=== PATIENT | female | born 1970 | race Caucasian/White ===

== ENCOUNTER 2019-01-20 15:03 | Emergency (ER) | payer MEDICAID, OTHER ==
[~2019-01-20] VITALS: Ht 175.3 cm; Wt 109.1 kg
[~2019-01-20 15:03] MED LIST: IBUP-1985 PO
[2019-01-20] MEDS ORDERED: normal saline 1000ML IV soln IVB ONE (15:45)
[2019-01-20 16:23] LABS: BASOPHILS # (AUTO) 0.1 X10'3 (0-0.2); EOSINOPHILS # (AUTO) 0.2 X10'3 (0-0.9); EOSINOPHILS % (AUTO) 1.6 % (0-6); HEMATOCRIT 42.2 % (35.0-45.0); HEMOGLOBIN 14.3 g/dl (12.0-16.0); LYMPHOCYTES # (AUTO) 2.3 X10'3 (1.1-4.8); LYMPHOCYTES % (AUTO) 24.1 % (21-51); MEAN CORPUSCULAR HEMOGLOBIN 29.8 PG (27.0-31.0); MEAN CORPUSCULAR HGB CONC 33.8 g/dL (33.0-36.5); MEAN CORPUSCULAR VOLUME 88.4 FL (78-98); MEAN PLATELET VOLUME 8.8 FL (7.4-10.4); MONOCYTES # (AUTO) 0.6 X10'3 (0-0.9); NEUTROPHILS # (AUTO) 6.3 X10'3 (1.8-7.7); NEUTROPHILS % (AUTO) 67.3 % (42-75); PLATELET COUNT 324 X10'3 (140-440); RED BLOOD COUNT 4.78 X10'6 (4.20-5.60); WHITE BLOOD COUNT 9.4 X10'3 (4.5-11.0)
[2019-01-20] MEDS ORDERED: ketorolac tromethamine 15mg/ml inj. IV ONE (16:25)
[2019-01-20] MEDS ORDERED: tranexamic acid inj. 1,000 MG in normal saline 100ml IV soln 100 ML IV ONE (16:25)
[2019-01-20 16:34] LABS: ALANINE AMINOTRANSFERASE 52 U/L (12-78); ALBUMIN 3.7 G/DL (3.4-5.0); ALBUMIN/GLOBULIN RATIO 0.9 (1.1-1.5); ALKALINE PHOSPHATASE 75 IU/L (46-116); ANION GAP 10 (8-16); ASPARTATE AMINO TRANSFERASE 21 U/L (10-37); BILIRUBIN,TOTAL 0.5 MG/DL (0.1-1.0); BLOOD UREA NITROGEN 12 MG/DL (7-18); BUN/CREATININE RATIO 12.1 (6.6-38.0); CALCIUM 9.2 MG/DL (8.5-10.1); CHLORIDE 106 MMOL/L (99-107); CREATININE 0.99 MG/DL (0.40-0.90); GLUCOSE 129 MG/DL (70-104); POTASSIUM 3.6 MMOL/L (3.5-5.1); SODIUM 141 MMOL/L (135-145); TOTAL CARBON DIOXIDE 25.3 MMOL/L (24-32); TOTAL PROTEIN 7.6 G/DL (6.4-8.2); eGFR 60 ML/MIN
[2019-01-20 16:44] LABS: PARTIAL THROMBOPLASTIN TIME 28 SECONDS (22-32); PROTHROMBIN TIME 9.7 SECONDS (9.0-12.0)
[2019-01-20 17:53] VITALS: BP 141/101
[2019-01-20 18:39] LABS: CLARITY,URINE CLEAR (Clear); COLOR,URINE YELLOW (Yellow); GLUCOSE, URINE >=1000 mg/dl (Neg); KETONES,URINE TRACE mg/dl (Neg); LEUKOCYTE ESTERASE ,URINE NEGATIVE (Neg); NITRITES, URINE NEGATIVE (Neg); OCCULT BLOOD,URINE NEGATIVE (Neg); PH,URINE 5.5 (4.8-8.0); PROTEIN,URINE NEGATIVE (Neg); UROBILINOGEN,URINE 0.2 E.U/dL (0.2-1.0)
[2019-01-20 18:41] LABS: UA COLLECTION TYPE CLN CATCH MIDSTREAM
[2019-01-20 18:49] LABS: BACTERIA,URINE NONE SEEN /HPF (Neg); RBC,URINE NONE SEEN /HPF (0-2); WBC,URINE NONE SEEN /HPF (0-4)
[2019-01-20 18:50] LABS: SQUAMOUS EPITHELIAL CELL,UR FEW /LPF (FEW)
== END 2019-01-20 19:27 | disposition home or self-care (01) ==
LOC: ER 15:03
DX: N93.8 Other specified abnormal uterine and vaginal bleeding (principal); Z88.5 Allergy status to narcotic agent
CPT/HCPCS: 36415; 80053; 81001; 85025; 85610; 85730; 96365; 96375; 99283; J1885; J7030

== ENCOUNTER 2021-03-31 20:43 | Emergency (ER) | payer MEDICAID ==
[~2021-03-31] VITALS: Ht 175.3 cm; Wt 129.5 kg
[2021-03-31 21:05] VITALS: BP 166/110
[2021-03-31] MEDS ORDERED: CEPH500C2 PO (22:11)
== END 2021-03-31 22:27 | disposition home or self-care (01) ==
LOC: ER 20:44
DX: L03.114 Cellulitis of left upper limb (principal); R21 Rash and other nonspecific skin eruption; Z88.5 Allergy status to narcotic agent; Z79.899 Other long term (current) drug therapy
CPT/HCPCS: 99283

== ENCOUNTER 2022-10-29 06:51 | Emergency (ER) | payer MEDICAID ==
[~2022-10-29] VITALS: Ht 175.3 cm; Wt 113.6 kg
[2022-10-29 11:01] LABS: BASOPHILS # (AUTO) 0.1 X10'3 (0-0.2); BASOPHILS % (AUTO) 0.8 % (0-1); EOSINOPHILS # (AUTO) 0.2 X10'3 (0-0.9); EOSINOPHILS % (AUTO) 2.9 % (0-6); HEMATOCRIT 46.4 % (35.0-45.0); HEMOGLOBIN 15.1 g/dl (12.0-16.0); LYMPHOCYTES # (AUTO) 1.9 X10'3 (1.1-4.8); MEAN CORPUSCULAR HGB CONC 32.6 g/dL (33.0-36.5); MEAN CORPUSCULAR VOLUME 88.9 FL (78-98); MEAN PLATELET VOLUME 9.2 FL (7.4-10.4); MONOCYTES # (AUTO) 0.5 X10'3 (0-0.9); MONOCYTES % (AUTO) 6.8 % (2-12); NEUTROPHILS # (AUTO) 4.6 X10'3 (1.8-7.7); NEUTROPHILS % (AUTO) 63.5 % (42-75); PLATELET COUNT 237 X10'3 (140-440); RED BLOOD COUNT 5.22 X10'6 (4.20-5.60); RED CELL DISTRIBUTION WIDTH 14.1 % (11.5-14.5); WHITE BLOOD COUNT 7.3 X10'3 (4.5-11.0)
[2022-10-29 12:05] LABS: BLOOD UREA NITROGEN 10 MG/DL (7-18); BUN/CREATININE RATIO 11.9 (6.6-38.0); CREATININE 0.84 MG/DL (0.40-0.90); GLUCOSE 93 MG/DL (70-104); MAGNESIUM 2.4 MG/DL (1.5-2.4); POTASSIUM 3.9 MMOL/L (3.5-5.1); SODIUM 140 MMOL/L (135-145); TOTAL CARBON DIOXIDE 25.7 MMOL/L (24-32); eGFR 71 ML/MIN
[2022-10-29 12:06] LABS: ALANINE AMINOTRANSFERASE 55 U/L (12-78); ALKALINE PHOSPHATASE 102 IU/L (46-116); ASPARTATE AMINO TRANSFERASE 34 U/L (10-37); BILIRUBIN,TOTAL 1.1 MG/DL (0.1-1.0); CHOLESTEROL 200 MG/DL (0-200); HDL CHOLESTEROL 50 MG/DL (35-60); LDL CHOLESTEROL 137 MG/DL (50-100); TOTAL PROTEIN 7.9 G/DL (6.4-8.2); TRIGLYCERIDES 95 MG/DL (20-135)
[2022-10-29] MEDS ORDERED: AMLO5TAB4 PO (12:27)
[2022-10-29] MEDS ORDERED: ROSU10TA2 PO (12:27)
[2022-10-29 12:40] VITALS: BP 168/98
[2022-10-29 13:13] LABS: ANION GAP 8 (8-16); CHLORIDE 106 MMOL/L (99-107)
== END 2022-10-29 12:42 | disposition home or self-care (01) ==
LOC: ER 06:52
DX: I10 Essential (primary) hypertension (principal); Z88.5 Allergy status to narcotic agent; Z98.890 Other specified postprocedural states; Z79.899 Other long term (current) drug therapy
CPT/HCPCS: 36415; 80053; 80061; 83735; 85025; 93005; 99284

== ENCOUNTER 2022-12-24 05:50 | Emergency (ER) | payer MEDICAID ==
[~2022-12-24] VITALS: Ht 175.3 cm; Wt 109.1 kg
[~2022-12-24 05:50] MED LIST changes: +AMLO5TAB4 PO
[2022-12-24 07:20] VITALS: BP 159/104
[2022-12-24] MEDS ORDERED: ketorolac trometh inj. 60 MG/2 ML VIAL IM ONE (10:10)
[2022-12-24 10:48] LABS: CLARITY,URINE CLEAR (Clear); COLOR,URINE YELLOW (Yellow); GLUCOSE, URINE NEGATIVE (Neg); KETONES,URINE 15 mg/dl (Neg); LEUKOCYTE ESTERASE ,URINE NEGATIVE (Neg); NITRITES, URINE NEGATIVE (Neg); OCCULT BLOOD,URINE LARGE (Neg); PROTEIN,URINE NEGATIVE (Neg)
[2022-12-24 11:03] LABS: UA COLLECTION TYPE CLN CATCH MIDSTREAM
[2022-12-24 11:05] LABS: BACTERIA,URINE 1+ /HPF (Neg); MUCUS STRANDS NONE SEEN /LPF (Neg); SQUAMOUS EPITHELIAL CELL,UR MODERATE /LPF (FEW); WBC,URINE 0-4 /HPF (0-4)
[2022-12-24] MEDS ORDERED: NAPR500T6 PO (11:39)
== END 2022-12-24 11:44 | disposition home or self-care (01) ==
LOC: ER 05:51
DX: M70.61 Trochanteric bursitis, right hip (principal); I10 Essential (primary) hypertension; Z79.899 Other long term (current) drug therapy; Z88.5 Allergy status to narcotic agent; Y93.89 Activity, other specified
CPT/HCPCS: 73502; 81001; 96372; 99284; J1885; 99283

== ENCOUNTER 2023-09-15 01:18 | Emergency (ER) | payer MEDICAID ==
[~2023-09-15] VITALS: Ht 175.3 cm; Wt 114.0 kg
[~2023-09-15 01:18] MED LIST changes: +NAPR500T6 PO
[2023-09-15 02:04] LABS: BASOPHILS # (AUTO) 0.1 X10'3 (0-0.2); BASOPHILS % (AUTO) 1.2 % (0-1); EOSINOPHILS # (AUTO) 0.3 X10'3 (0-0.9); EOSINOPHILS % (AUTO) 3.7 % (0-6); HEMOGLOBIN 14.5 g/dl (12.0-16.0); LYMPHOCYTES # (AUTO) 2.2 X10'3 (1.1-4.8); LYMPHOCYTES % (AUTO) 27.3 % (21-51); MEAN CORPUSCULAR HEMOGLOBIN 29.7 PG (27.0-31.0); MEAN CORPUSCULAR HGB CONC 33.6 g/dL (33.0-36.5); MEAN CORPUSCULAR VOLUME 88.4 FL (78-98); MEAN PLATELET VOLUME 8.7 FL (7.4-10.4); MONOCYTES # (AUTO) 0.6 X10'3 (0-0.9); NEUTROPHILS # (AUTO) 4.9 X10'3 (1.8-7.7); NEUTROPHILS % (AUTO) 60.8 % (42-75); PLATELET COUNT 222 X10'3 (140-440); RED BLOOD COUNT 4.86 X10'6 (4.20-5.60); RED CELL DISTRIBUTION WIDTH 13.8 % (11.5-14.5)
[2023-09-15 02:10] LABS: ALANINE AMINOTRANSFERASE 35 U/L (12-78); ALBUMIN 3.5 G/DL (3.4-5.0); ALBUMIN/GLOBULIN RATIO 0.9 (1.1-1.5); ALKALINE PHOSPHATASE 84 IU/L (46-116); ASPARTATE AMINO TRANSFERASE 20 U/L (10-37); BILIRUBIN,TOTAL 0.6 MG/DL (0.1-1.0); BLOOD UREA NITROGEN 12 MG/DL (7-18); BUN/CREATININE RATIO 14.6 (10.0-20.0); CHLORIDE 105 MMOL/L (99-107); CREATININE 0.82 MG/DL (0.40-0.90); GLUCOSE 134 MG/DL (70-104); POTASSIUM 4.2 MMOL/L (3.5-5.1); TOTAL CARBON DIOXIDE 26.9 MMOL/L (24-32); TOTAL PROTEIN 7.3 G/DL (6.4-8.2); eCRCL 84 ML/MIN; eGFR 73 ML/MIN
[2023-09-15] MEDS ORDERED: NO HOME MEDS (02:16)
[2023-09-15 02:18] LABS: PRO BRAIN NATRIURETIC PEPTIDE < 30 PG/ML (0-125)
[2023-09-15 02:20] LABS: ANION GAP 8 (8-16); SODIUM 140 MMOL/L (135-145)
[2023-09-15 02:28] LABS: LIPASE 50 U/L (16-77)
[2023-09-15 02:40] LABS: URINE HCG NEGATIVE (NEG)
[2023-09-15 02:42] LABS: BILIRUBIN,URINE NEGATIVE (Neg); CLARITY,URINE CLEAR (Clear); COLOR,URINE YELLOW (Yellow); GLUCOSE, URINE NEGATIVE (Neg); KETONES,URINE NEGATIVE (Neg); LEUKOCYTE ESTERASE ,URINE NEGATIVE (Neg); NITRITES, URINE NEGATIVE (Neg); OCCULT BLOOD,URINE NEGATIVE (Neg); PROTEIN,URINE NEGATIVE (Neg); UROBILINOGEN,URINE 0.2 E.U/dL (0.2-1.0)
[2023-09-15 02:43] LABS: UA COLLECTION TYPE CLN CATCH MIDSTREAM
[2023-09-15 03:54] VITALS: BP 141/90; PULSE 93; RESP 16; TEMP 97.9; O2SAT 97
== END 2023-09-15 03:30 | disposition home or self-care (01) ==
LOC: ER 01:18
DX: K80.20 Calculus of gallbladder without cholecystitis without obstruction (principal); I10 Essential (primary) hypertension; Z88.5 Allergy status to narcotic agent; Z79.899 Other long term (current) drug therapy; Z79.1 Long term (current) use of non-steroidal anti-inflammatories (NSAID)
CPT/HCPCS: 36415; 71045; 76700; 80053; 81003; 81025; 83690; 83880; 84484; 85025; 93005; 99285

== ENCOUNTER 2025-01-23 01:23 | Inpatient (IN) | payer MEDICAID ==
[~2025-01-23] VITALS: Ht 172.7 cm; Wt 144.6 kg
[2025-01-23] VITALS (17 sets, daily range): BP systolic 123–160; BP diastolic 52–95; PULSE 94–114; RESP 16–28; TEMP 97.4–98.2; O2SAT 93–98
[~2025-01-23 01:23] MED LIST changes: -AMLO5TAB4 PO; -IBUP-1985 PO; -NAPR500T6 PO; +NO HOME MEDS
[2025-01-23] MEDS: ketorolac trometh 15mg/ml vial 15 MG/ML ML IV ONE (02:10)
[2025-01-23 02:16] LABS: ALANINE AMINOTRANSFERASE 67 U/L (12-78); ALBUMIN 3.3 G/DL (3.4-5.0); ALKALINE PHOSPHATASE 86 IU/L (46-116); ANION GAP 8 (8-16); BILIRUBIN,TOTAL 0.8 MG/DL (0.1-1.0); BLOOD UREA NITROGEN 14 MG/DL (7-18); BUN/CREATININE RATIO 16.3 (10.0-20.0); CALCIUM 8.7 MG/DL (8.5-10.1); CHLORIDE 109 MMOL/L (99-107); CREATININE 0.86 MG/DL (0.40-0.90); GLUCOSE 130 MG/DL (70-104); LIPASE 64 U/L (16-77); SODIUM 142 MMOL/L (135-145); TOTAL CARBON DIOXIDE 24.9 MMOL/L (24-32); TOTAL PROTEIN 6.7 G/DL (6.4-8.2); eCRCL 78 ML/MIN; eGFR 69 ML/MIN
[2025-01-23 02:18] LABS: ASPARTATE AMINO TRANSFERASE 43 U/L (10-37); POTASSIUM 4.2 MMOL/L (3.5-5.1)
[2025-01-23 02:45] LABS: BASOPHILS % (AUTO) 0.3 % (0-1); EOSINOPHILS # (AUTO) 0.2 X10'3 (0-0.9); EOSINOPHILS % (AUTO) 3.7 % (0-6); HEMATOCRIT 40.5 % (35.0-45.0); HEMOGLOBIN 13.6 g/dl (12.0-16.0); LYMPHOCYTES # (AUTO) 1.5 X10'3 (1.1-4.8); MEAN CORPUSCULAR HEMOGLOBIN 29.3 PG (27.0-31.0); MEAN CORPUSCULAR HGB CONC 33.6 g/dL (33.0-36.5); MEAN CORPUSCULAR VOLUME 87.1 FL (78-98); MEAN PLATELET VOLUME 8.9 FL (7.4-10.4); MONOCYTES # (AUTO) 0.5 X10'3 (0-0.9); MONOCYTES % (AUTO) 7.8 % (2-12); NEUTROPHILS # (AUTO) 4.5 X10'3 (1.8-7.7); NEUTROPHILS % (AUTO) 66.2 % (42-75); PLATELET COUNT 227 X10'3 (140-440); RED BLOOD COUNT 4.65 X10'6 (4.20-5.60); RED CELL DISTRIBUTION WIDTH 14.3 % (11.5-14.5); WHITE BLOOD COUNT 6.8 X10'3 (4.5-11.0)
[2025-01-23] MEDS: potassium Cl 20 mEq SR tablet PO ONE (04:02)
[2025-01-23] MEDS: furosemide 10 MG/1 ML 10ml inj IV ONE (04:03)
[2025-01-23] MEDS ORDERED: morphine 2 MG/ML inj. syringe IV PRN ×2 (05:15)
[2025-01-23] MEDS ORDERED: HYDROmorphone inj. 0.5 MG/0.5 ML DISP.SYRIN IV PRN (05:15)
[2025-01-23] MEDS ORDERED: ondansetron 4mg rapidly disintigrating tab PO PRN (05:15)
[2025-01-23] MEDS ORDERED: ondansetron/PF 4mg/2ml inj IV PRN ×2 (05:15→09:45)
[2025-01-23] MEDS ORDERED: bisacodyl 10mg suppository rectal RC PRN (05:15)
[2025-01-23] MEDS ORDERED: magnesium Cl slow-release 64mg tablet PO PRN (05:15)
[2025-01-23] MEDS ORDERED: magnesium sulf-water 4G/100mL 100 ML IV PRN (05:15)
[2025-01-23] MEDS ORDERED: magnesium hydroxide 30ml (MOM) UD suspension PO PRN (05:15)
[2025-01-23] MEDS ORDERED: potassium Cl 20 mEq SR tablet PO PRN ×2 (05:15)
[2025-01-23] MEDS ORDERED: metoclopramide 5 mg/ml inj IV PRN (05:15)
[2025-01-23] MEDS ORDERED: potassium Cl 40MEQ/1/2NS 520ml 520 ML IV PRN (05:15)
[2025-01-23] MEDS ORDERED: magnesium sulf-water 2g/50mL 50 ML IV PRN (05:15)
[2025-01-23] MEDS ORDERED: normal saline 1000ml 1,000 ML IV SCH (05:15)
[2025-01-23 05:35] LABS: HEMOGLOBIN A1C 6.2 % (4.5-6.2)
[2025-01-23 05:37] LABS: MAGNESIUM 1.9 MG/DL (1.5-2.4); POTASSIUM 3.8 MMOL/L (3.5-5.1); PRO BRAIN NATRIURETIC PEPTIDE < 30 PG/ML (0-125)
[2025-01-23 07:59] LABS: APTT 25 SECONDS (22-32); PROTHROMBIN TIME 10.4 SECONDS (9.0-12.0)
[2025-01-23] MEDS: K and/or MAG REPLACEMENT MC SCH (08:00)
[2025-01-23] MEDS: lisinopril 10 MG tablet PO SCH (08:00)
[2025-01-23] MEDS: docusate sod 100mg capsule PO SCH (08:00)
[2025-01-23 08:07] LABS: BILIRUBIN,URINE NEGATIVE (Neg); CLARITY,URINE SLIGHTLY CLOUDY (Clear); COLOR,URINE STRAW (Yellow); GLUCOSE, URINE NEGATIVE (Neg); KETONES,URINE NEGATIVE (Neg); LEUKOCYTE ESTERASE ,URINE NEGATIVE (Neg); NITRITES, URINE NEGATIVE (Neg); OCCULT BLOOD,URINE MODERATE (Neg); PH,URINE 5.5 (4.8-8.0); PROTEIN,URINE NEGATIVE (Neg); UROBILINOGEN,URINE 0.2 E.U/dL (0.2-1.0)
[2025-01-23 08:09] LABS: UA COLLECTION TYPE CLN CATCH MIDSTREAM
[2025-01-23 08:13] LABS: URINE HCG NEGATIVE (NEG)
[2025-01-23 08:16] LABS: BACTERIA,URINE FEW /HPF (Neg); HYALINE CASTS 0-3 /LPF (NEGATIVE); MUCUS STRANDS NONE SEEN /LPF (Neg); RBC,URINE 0-2 /HPF (0-2); SQUAMOUS EPITHELIAL CELL,UR MODERATE /LPF (FEW); WBC,URINE 0-4 /HPF (0-4)
[2025-01-23] MEDS: furosemide 20 MG/2 ML vial IV SCH (09:33)
[2025-01-23] MEDS ORDERED: LIDOcaine 1% 30ml preserv. free vial ONE (09:34)
[2025-01-23] MEDS ORDERED: BUPIVAcaine 2.5mg/ml inj 50ml vial (contains preservative) ONE (09:34)
[2025-01-23] MEDS: enoxaparin 40mg/0.4ml syringe SUBCUT SCH (09:35)
[2025-01-23] MEDS: INDOCYANINE GREEN 25 MG/10 ML VIAL IV STA (09:39)
[2025-01-23] MEDS: piperacillin/tazo 3.375gm/50ml 50 ML IV SCH (09:43)
[2025-01-23] MEDS ORDERED: morphine 4 MG/ML inj SYRINge IV PRN (09:45)
[2025-01-23] MEDS ORDERED: labetalol 20mg/4ml (5mg/ml) syringe IV PRN (09:45)
[2025-01-23] MEDS ORDERED: proCHLORperazine 10 MG/2 ml inj IV PRN (09:45)
[2025-01-23] MEDS ORDERED: enalaprilat 1.25mg/ml 2ml vial IV PRN (09:45)
[2025-01-23] MEDS ORDERED: meperidine/PF 25mg/ml syringe IV PRN ×3 (09:45)
[2025-01-23] MEDS ORDERED: sevoflurane 250ml liquid IH ONE (10:52)
[2025-01-23] MEDS ORDERED: midazolam 1 mg/ML 2ml injection ONE (11:05)
[2025-01-23] MEDS ORDERED: fentaNYL /PF 50mcg/ml 5ml ampule ONE (11:07)
[2025-01-23] MEDS ORDERED: rocuronium 10mg/ml inj IV ONE (11:16)
[2025-01-23] MEDS ORDERED: propofol inj 20 ML IV ONE (11:16)
[2025-01-23] MEDS ORDERED: LIDOcaine 2% (20mg/ml) 5ml vial ONE (11:16)
[2025-01-23] MEDS ORDERED: dexamethasone sod phosphate 4mg/ml inj. ONE (11:16)
[2025-01-23] MEDS ORDERED: ondansetron/PF 4mg/2ml inj ONE (11:16)
[2025-01-23] MEDS: BUPIVAcaine/PF 2.5 mg/ml (0.25%) 30ml vial IJ ONE (11:59)
[2025-01-23] MEDS: morphine 2 MG/ML inj. syringe IV PRN (12:51)
[2025-01-23] MEDS ORDERED: naloxone 0.4 mg/ml inj IV PRN (12:55)
[2025-01-23] MEDS ORDERED: HYDROcodone/acetaminophen 5mg/325mg tablet PO PRN (12:55)
[2025-01-23] MEDS ORDERED: HYDROcodone/acetaminophen 10/325mg tab PO PRN (12:55)
[2025-01-23] MEDS: ringers solution, lacted 1,000 ML IV SCH (13:50)
[2025-01-23] MEDS: acetaminophen 325mg tablet PO PRN (19:24)
[2025-01-24 04:42] LABS: BASOPHILS # (AUTO) 0.1 X10'3 (0-0.2); BASOPHILS % (AUTO) 0.6 % (0-1); EOSINOPHILS % (AUTO) 0 % (0-6); HEMATOCRIT 40.9 % (35.0-45.0); HEMOGLOBIN 13.6 g/dl (12.0-16.0); LYMPHOCYTES % (AUTO) 8.7 % (21-51); MEAN CORPUSCULAR HEMOGLOBIN 28.9 PG (27.0-31.0); MEAN CORPUSCULAR HGB CONC 33.3 g/dL (33.0-36.5); MEAN CORPUSCULAR VOLUME 86.9 FL (78-98); MEAN PLATELET VOLUME 8.9 FL (7.4-10.4); MONOCYTES # (AUTO) 0.5 X10'3 (0-0.9); MONOCYTES % (AUTO) 4.8 % (2-12); NEUTROPHILS # (AUTO) 9.6 X10'3 (1.8-7.7); NEUTROPHILS % (AUTO) 85.9 % (42-75); PLATELET COUNT 245 X10'3 (140-440); RED BLOOD COUNT 4.71 X10'6 (4.20-5.60); RED CELL DISTRIBUTION WIDTH 14.1 % (11.5-14.5); WHITE BLOOD COUNT 11.1 X10'3 (4.5-11.0)
[2025-01-24 05:02] LABS: ALANINE AMINOTRANSFERASE 267 U/L (12-78); ALBUMIN 3.2 G/DL (3.4-5.0); ALBUMIN/GLOBULIN RATIO 0.9 (1.1-1.5); ALKALINE PHOSPHATASE 98 IU/L (46-116); ANION GAP 5 (8-16); ASPARTATE AMINO TRANSFERASE 196 U/L (10-37); BILIRUBIN,TOTAL 1.2 MG/DL (0.1-1.0); BLOOD UREA NITROGEN 10 MG/DL (7-18); BUN/CREATININE RATIO 12.7 (10.0-20.0); CALCIUM 8.7 MG/DL (8.5-10.1); CHLORIDE 106 MMOL/L (99-107); CHOL/HDL RATIO 3.4 (0.00-4.99); CHOLESTEROL 178 MG/DL (0-200); CREATININE 0.79 MG/DL (0.40-0.90); GLUCOSE 132 MG/DL (70-104); HDL CHOLESTEROL 53 MG/DL (35-60); LDL CHOLESTEROL 109 MG/DL (50-100); MAGNESIUM 1.9 MG/DL (1.5-2.4); POTASSIUM 3.9 MMOL/L (3.5-5.1); SODIUM 140 MMOL/L (135-145); TOTAL CARBON DIOXIDE 28.9 MMOL/L (24-32); TOTAL PROTEIN 6.7 G/DL (6.4-8.2); TRIGLYCERIDES 84 MG/DL (20-135); eCRCL 82 ML/MIN; eGFR 76 ML/MIN
[2025-01-24 06:00] VITALS: BP 145/80; PULSE 117; RESP 16; TEMP 97.9; O2SAT 95
[2025-01-24 08:00] VITALS: RESP 18; O2SAT 95
[2025-01-24 10:00] VITALS: BP 147/82; PULSE 105; RESP 14; TEMP 97.5; O2SAT 97
[2025-01-24 18:00] VITALS: BP 115/57; PULSE 94; RESP 16; TEMP 97.3; O2SAT 96
[2025-01-24] MEDS: mag hydrox/Alum hydrox/simeth 30ml oral suspension PO PRN (20:28)
[2025-01-24 22:00] VITALS: BP 157/64; PULSE 96; RESP 18; TEMP 99.1; O2SAT 96
[2025-01-24 23:21] VITALS: RESP 16; O2SAT 96
[2025-01-25 06:00] VITALS: BP 117/72; PULSE 95; RESP 16; TEMP 98.1; O2SAT 96
[2025-01-25 06:27] LABS: BASOPHILS # (AUTO) 0.1 X10'3 (0-0.2); BASOPHILS % (AUTO) 1.2 % (0-1); EOSINOPHILS # (AUTO) 0.2 X10'3 (0-0.9); EOSINOPHILS % (AUTO) 2.3 % (0-6); HEMATOCRIT 42.9 % (35.0-45.0); HEMOGLOBIN 14.2 g/dl (12.0-16.0); LYMPHOCYTES # (AUTO) 2.7 X10'3 (1.1-4.8); LYMPHOCYTES % (AUTO) 31.7 % (21-51); MEAN CORPUSCULAR HGB CONC 33.2 g/dL (33.0-36.5); MEAN CORPUSCULAR VOLUME 87.3 FL (78-98); MEAN PLATELET VOLUME 9.4 FL (7.4-10.4); MONOCYTES # (AUTO) 0.5 X10'3 (0-0.9); MONOCYTES % (AUTO) 6.2 % (2-12); NEUTROPHILS % (AUTO) 58.6 % (42-75); PLATELET COUNT 250 X10'3 (140-440); RED BLOOD COUNT 4.92 X10'6 (4.20-5.60); RED CELL DISTRIBUTION WIDTH 14.5 % (11.5-14.5); WHITE BLOOD COUNT 8.5 X10'3 (4.5-11.0)
[2025-01-25 06:48] LABS: ALANINE AMINOTRANSFERASE 213 U/L (12-78); ALBUMIN 3.2 G/DL (3.4-5.0); ALBUMIN/GLOBULIN RATIO 0.9 (1.1-1.5); ALKALINE PHOSPHATASE 86 IU/L (46-116); ANION GAP 9 (8-16); ASPARTATE AMINO TRANSFERASE 90 U/L (10-37); BLOOD UREA NITROGEN 18 MG/DL (7-18); BUN/CREATININE RATIO 22.2 (10.0-20.0); CALCIUM 8.5 MG/DL (8.5-10.1); CHLORIDE 105 MMOL/L (99-107); CREATININE 0.81 MG/DL (0.40-0.90); GLUCOSE 113 MG/DL (70-104); MAGNESIUM 2.2 MG/DL (1.5-2.4); POTASSIUM 3.9 MMOL/L (3.5-5.1); SODIUM 141 MMOL/L (135-145); TOTAL CARBON DIOXIDE 27.3 MMOL/L (24-32); TOTAL PROTEIN 6.7 G/DL (6.4-8.2); eCRCL 80 ML/MIN; eGFR 74 ML/MIN
[2025-01-25 08:16] VITALS: RESP 16; O2SAT 96
[2025-01-25 10:00] VITALS: BP 108/79; PULSE 109; RESP 18; TEMP 98.3; O2SAT 91
[2025-01-25] MEDS ORDERED: ACET-2778 PO (10:17)
[2025-01-25] MEDS ORDERED: LISI10TA27 PO (10:17)
== END 2025-01-25 14:00 | disposition home or self-care (01) | DRG 263 ==
LOC: ER 01:23 → ED HOLD 05:14 → ORTHO 4S 13:50
PROVIDERS: ADMIT Internal Medicine Critical Care Medicine; ATTEND Family Medicine
PROC: BF522Z0 Other Imaging of Gallbladder using Fluorescing Agent, Intraoperative (ICD-10-PCS; 2025-01-23)
PROC: 8E0W4CZ Robotic Assisted Procedure of Trunk Region, Percutaneous Endoscopic Approach (ICD-10-PCS; 2025-01-23)
PROC: 0FT44ZZ Resection of Gallbladder, Percutaneous Endoscopic Approach (ICD-10-PCS; principal; 2025-01-23 10:52)
DX: K80.00 Calculus of gallbladder with acute cholecystitis without obstruction (principal); K76.0 Fatty (change of) liver, not elsewhere classified; E66.01 Morbid (severe) obesity due to excess calories; Z20.822 Contact with and (suspected) exposure to COVID-19; I10 Essential (primary) hypertension; K82.8 Other specified diseases of gallbladder; G89.29 Other chronic pain; M54.50 Low back pain, unspecified; Z87.891 Personal history of nicotine dependence; Z79.899 Other long term (current) drug therapy; Z68.42 Body mass index [BMI] 45.0-49.9, adult; Z88.5 Allergy status to narcotic agent
CPT/HCPCS: 36415; 71045; 76700; 80053; 80061; 81001; 81025; 83036; 83690; 83735; 83880; 84132; 85025; 85610; 85730; 87081; 87811; 93005; 93306; 93970; 97116; 97161; 97530; 99285; A4215; A4618; A7000; G0378; J1100; J1650; J1885; J1938; J2003; J2250; J2270; J2405; J2543; J2704; J2710; J3010; J3490; J7120